=== PATIENT | female | born 1945 | race Asian ===

== ENCOUNTER 2024-03-10 19:32 | Emergency (ER) | payer MEDICARE, OTHER, SELFPAY ==
[2024-03-10 19:38] VITALS: BP 194/74
[2024-03-10 20:01] LABS: % Basophils 0.7 % (0-2); % Eosinophils 4.6 % (0-6); % Immature Granulocytes 0.2 % (0-0.5); % Lymphocytes 23.1 % (20.5-51.1); % Monocytes 7.8 % (1.7-9.3); % Neutrophils 63.6 % (42.2-75.2); Absolute Basophils 0.1 10^3/uL (0-0.2); Absolute Eosinophils 0.4 10^3/uL (0-0.7); Absolute Monocytes 0.7 10^3/uL (0.1-0.6); Absolute Neutrophils 5.5 10^3/uL (1.4-6.5); Hematocrit 34.7 % (37.0-47.0); Hemoglobin 12.5 g/dL (12.0-16.0); Mean Corpuscular Hgb 30.3 pg (27.0-31.0); Mean Platelet Volume 9.7 fL (7.4-10.4); Nucleated Red Blood Cells % 0 %; Platelet Count 235 10^3/uL (130-400); Red Blood Cell Count 4.13 10^6/uL (4.20-5.40); Red Cell Dist. Width 12.9 % (11.5-14.5); White Blood Cell Count 8.6 10^3/uL (4.8-10.8)
[2024-03-10 20:12] LABS: ALT (SGPT) 19 U/L (0-35); AST (SGOT) 37 U/L (14-36); Albumin 4.8 g/dl (3.5-5.0); Alkaline Phosphatase 92 U/L (38-126); Blood Urea Nitrogen 27 mg/dl (7-17); Calcium 10.5 mg/dl (8.4-10.2); Carbon Dioxide 24 mmol/L (22-30); Chloride 93 mmol/L (98-107); Glucose 93 mg/dl (70-99); Potassium 4.5 mmol/L (3.5-5.1); Sodium 128 mmol/L (135-145); Total Bilirubin 0.4 mg/dl (0.2-1.3); Total Protein 7.9 g/dl (6.3-8.2); eGFR > 60.00
--- NOTE | 2024-03-10 22:55 | ED.GENMED ---
History of Present Illness
<HALEIGH Dee - Last Filed: 03/11/24 02:31>
General
Chief Complaint: Back Pain
Source: patient, records and family
Exam Limitations: none
Time Seen by Provider: 03/10/24 22:44
Travel History
Have you had any contact with someone who has COVID-19?: No
Do you have any symptoms of coronavirus? Fever > 100 degrees, chills, cough, shortness of breath, sore throat, loss of taste or smell, muscle aches, or headache?: No
History of Present Illness
History of Present Illness:
78 year old female with hx of HLD, HTN, SD, s/p cardiac stents, hypothyroidism who presents with sudden onset of severe head ache that that began at 1900 today. Head ache is diffused to the top of the head and radiates to the back of the neck.
States the pain has been constant but has improved since onset. She also notes runny nose that began today. Denies fevers/chills, vision changes, numbness, weakness, fatigue, cough, chest pain, SOB, abdominal pain, vomiting, diarrhea. Denies trauma
or injury. Pt does not take blood pressure at home. Pt reports intermittent dizziness described as a room spinning sensation that began 2 weeks ago. She takes Meclizine for these symptoms. Pt speaks Polish. Her son is present for glass checker
assistance.
Pt takes Metoprolol 50 mg daily, Lisinopril 40 mg daily in the AM and Amlodipine 5 mg QHS. She took all her medications today.
Records review shows pt was here on 09/10/21 for head pressure and head ache. She was found to be hypertensive at 153/65. She was discharged with likely symptomatic hypertension. No TIA or CVA suspected. EKG, trop were negative.
Past History
<HALEIGH Dee - Last Filed: 03/11/24 02:31>
Past History
ED Past Medical History: CAD, HTN, Hypercholesterolemia and Hypothyroidism
ED Past Surgical History: Cardiac (Cardiac catheterization with stents)
Social History
Tobacco: Non-smoker
Alcohol: None
Drug: None
Living: with family
Employment: Retired
Review of Systems
<HALEIGH Dee - Last Filed: 03/11/24 02:31>
Review of Systems
Allergies reviewed?: Yes
All Other Systems: ROS reviewed and negative except as documented in HPI and ROS
Constitutional: Reports no symptoms
EENT: Reports runny nose
Respiratory: Reports no symptoms
Cardiac: Reports no symptoms
ABD/GI: Reports no symptoms
: Reports no symptoms
Musculoskeletal: Reports no symptoms
Skin: Reports no symptoms
Neurological: Reports headache
Endocrine: Reports no symptoms
Hematologic/Lymphatic: Reports no symptoms
Psychiatric: Reports no symptoms
Phy Exam
<HALEIGH Dee - Last Filed: 03/11/24 02:31>
General Physical Exam
General Presentation: well appearing and mild distress
General age: appears stated age
General Skin: warm and dry
General Habitus: normal
General Mental: alert
General Hydration: appears well hydrated
Cardiovascular Exam
Cardiovascular Exam: regular rate/rhythm, no edema, no gallop, no murmur and normal peripheral pulses
Pulmonary Exam
Pulmonary Exam: lungs clear, no respiratory distress, no rales, no crackles, no rhonchi, no wheezing and no cough
Neurological Exam
Neurological Exam: alert, oriented x3, CN II-XII intact, no motor deficits, no sensory deficits and speech normal
Musculoskeletal Exam
Musculoskeletal Exam: full ROM (neck)
Skin Exam
Skin Exam: normal color and warm/dry
Psychiatric Exam
Psychiatric Exam: normal mood/affect
Course
<HALEIGH Dee - Last Filed: 03/11/24 02:31>
Orders/Labs/Results
Orders:
Orders
03/10/24 19:51
Complete Blood Count/With Diff Urgent
Comprehensive Metabolic Panel Urgent
03/10/24 23:29
0.9% Sodium Chloride 1000 ml [Nss] 1,000 ml IV BOLUS
Acetaminophen [Tylenol] 1,000 mg PO NOW STA
03/11/24 00:15
CT Head W/o Iv Contrast Urgent
Reason For Exam: headache
Abnormal Lab Results
03/10/24
19:51
RBC 4.13 L 10^6/uL
(4.20-5.40)
Hct 34.7 L %
(37.0-47.0)
Absolute Monos (auto) 0.7 H 10^3/uL
(0.1-0.6)
Sodium 128 L mmol/L
(135-145)
Chloride 93 L mmol/L
(98-107)
BUN 27 H mg/dl
(7-17)
Calcium 10.5 H mg/dl
(8.4-10.2)
AST 37 H U/L
(14-36)
03/10/24 19:51
03/10/24 19:51
Vital Signs
Initial and Last Documented VS:
Initial Vital Signs
Temp Pulse Resp BP Pulse Ox
98.6 F 65 20 194/74 99
03/10/24 19:38 03/10/24 19:38 03/10/24 19:38 03/10/24 19:38 03/10/24 19:38
Last Documented Vital Signs
Temp Pulse Resp BP Pulse Ox
98.6 F 65 20 138/56 97
03/10/24 19:38 03/10/24 19:38 03/10/24 19:38 03/11/24 01:34 03/11/24 01:34
[place];Daisy Church, DO - Last Filed: 03/11/24 01:40>
Orders/Labs/Results
Orders:
Orders
03/10/24 19:51
Complete Blood Count/With Diff Urgent
Comprehensive Metabolic Panel Urgent
03/10/24 23:29
0.9% Sodium Chloride 1000 ml [Nss] 1,000 ml IV BOLUS
Acetaminophen [Tylenol] 1,000 mg PO NOW STA
03/11/24 00:15
CT Head W/o Iv Contrast Urgent
Reason For Exam: headache
Abnormal Lab Results
03/10/24
19:51
RBC 4.13 L 10^6/uL
(4.20-5.40)
Hct 34.7 L %
(37.0-47.0)
Absolute Monos (auto) 0.7 H 10^3/uL
(0.1-0.6)
Sodium 128 L mmol/L
(135-145)
Chloride 93 L mmol/L
(98-107)
BUN 27 H mg/dl
(7-17)
Calcium 10.5 H mg/dl
(8.4-10.2)
AST 37 H U/L
(14-36)
03/10/24 19:51
03/10/24 19:51
Vital Signs
Initial and Last Documented VS:
Initial Vital Signs
Temp Pulse Resp BP Pulse Ox
98.6 F 65 20 194/74 99
03/10/24 19:38 03/10/24 19:38 03/10/24 19:38 03/10/24 19:38 03/10/24 19:38
Last Documented Vital Signs
Temp Pulse Resp BP Pulse Ox
98.6 F 65 20 138/56 97
03/10/24 19:38 03/10/24 19:38 03/10/24 19:38 03/11/24 01:34 03/11/24 01:34
<HALEIGH Dee - Last Filed: 03/11/24 02:31>
MDM/Problems Addressed
Differential Diagnosis Includes:
symptomatic hypertension, migraine, TIA, CVA
MDM/Problems Addressed:
78 year old female who presents with global head ache that radiates down the back of the head to the neck that began at 1900 today.
<HALEIGH Dee - Last Filed: 03/11/24 02:31>
*Critical Care Note
Total Time (30-74mins, 75-104mins- exclusive of procedures): Not Applicable
<Daisy Church DO - Last Filed: 03/11/24 01:40>
*Radiology
Radiology exam reviewed: radiology read reviewed
*Pulse Oximetry
Patient hypoxic: no
ED Attending Note
<HALEIGH Dee - Last Filed: 03/11/24 02:31>
-
Portions of this chart may have been created with voice recognition software.� Occasional wrong word or��sound alike� substitutions may have occurred due to the inherent limitations of voice recognition software.
<Daisy Church DO - Last Filed: 03/11/24 01:40>
ED Attending Note
Patient seen and examined by attending physician: Yes
I performed the substantive portion of visit, reviewed & personally made and approve the management plan that is documented in note by myself or ACACIA.: Yes
I performed a history and physical exam of patient and discussed management with resident, I reviewed resident's note and agree with documented findings and plan of care.: Yes
ED Attending Note:
This is a quite spry 78-year-old woman who resides at home with her son and grandson. She has history of hypertension maintained on amlodipine, lisinopril, metoprolol. She has history of hyperlipidemia and remote history of SD.
More recently over the past 2 weeks she has had intermittent episodes of dizziness, vertigo which she has had sporadically in the past. Evaluated by her PCP, prescribed meclizine with improvement in vertigo.
Tonight however she developed generalized headache that began around 7:30 PM. Headache described as a pressure, throbbing extending from her forehead to her occiput and to her posterior neck. No associated dizziness nor lightheadedness, no nausea,
no vision changes, no chest pain or palpitations, no weakness nor numbness. She has not taken anything for her headache and admits that headache is markedly improved but has not resolved.
She was evaluated in this ED with somewhat similar headache August 2021. Unremarkable ED workup at that time including laboratory studies, CT of the head. Headache appeared to have resolved without interventions.
She does admit to mild nasal congestion over the past day or 2, rare episodes of sneezing but has not had a cough nor fever nor sore throat.
She has had no falls. No change in medications.
She does not monitor her blood pressure at home but states blood pressures generally fairly well controlled.
Patient speaks Polish, her son is interpreting.
GENERAL: 78-year-old woman appears younger than stated age, bright and alert, pleasant, appears in no acute distress. Initial triage blood pressure elevated at 194/74, upon recheck 151/59.
EYE: pupils equal and reactive. Extraocular muscles intact. Discs are sharp bilaterally. Anicteric
NECK: Supple, nontender, no meningismus, no significant adenopathy. No bruit. Full range of motion without difficulty nor pain.
ENT: posterior pharynx is clear, oral mucosa is moist. TM clear b/l, nares have moderately boggy pale blue turbinates with scant clear rhinorrhea.
CARDIAC: Regular rate and rhythm. no murmur.
LUNGS: Clear breath sounds bilaterally, no acute respiratory distress, no wheezes/rales/rhonchi
ABDOMEN: Soft, nondistended, without focal tenderness, normoactive BS.
NEUROLOGICAL: Alert and oriented x3, no focal neuro deficits. Motor strength is 5/5 bilaterally. Gross sensation is intact. Gait is steady.
SKIN: Warm and dry, normal color, skin intact. No rash.
MUSCULOSKELETAL: No C/C/E. peripheral pulses are full and equal b/l. No palpable tenderness.
PSYCH: Normal and appropriate interaction.
78-year-old woman presents with acute generalized headache that began this evening, moderate in intensity but denies thunderclap in quality. Overall improving but has not completely resolved.
Patient to be somewhat similar headache for which she presented 2020.
Moderate hypertension noted initially has improved to 151/59.
Headache may be hypertension related versus tension headache, sinus headache. Less likely acute intracranial hemorrhage/abnormality but due to advanced age will check CT of the head.
Overall exam is reassuring.
Labs show unremarkable CBC. Mild hyponatremia, similar hyponatremia noted in 2020.
Mild to moderate prerenal azotemia with BUN of 27, normal creatinine 0.7. BUN has trended up moderately compared to previous labs in 2020.
Son notes that patient has had a mildly decreased appetite over the past week or 2 but she has had no GI illness nor febrile illness.
Will check CT, give Tylenol for headache and will instill liter of normal saline solution for mild dehydration.
03/11/[address] is unremarkable.
Patient resting comfortably, reports complete relief of headache after Tylenol.
Discussed importance of remaining well-hydrated on a daily basis.
Prompt follow-up with PCP for recheck.
Discharge Plan
Departure
Patient Disposition: Home (Routine Discharge)
Date of Disposition: 03/11/24
Time of Disposition: 01:39
Patient with high blood pressure during this ER visit?: No
Condition: Good
Discharge Problem:
Acute headache
Instructions: Headache, Adult ED
Prescriptions:
No Action
metoprolol succinate 50 MG tablet extended release 24 hr
50 mg PO DAILY
amlodipine [Norvasc] 5 MG tablet
5 mg PO DAILY
levothyroxine [Synthroid] 50 MCG tablet
50 mcg PO DAILY
loteprednol etabonate [Lotemax] 5 GM drops,gel
5 gm OP DAILY
meclizine [Motion Sickness Relief(mecliz)] 25 MG tablet
25 mg PO DAILY
aspirin 81 MG tablet,chewable
81 mg PO DAILY
zolpidem 5 MG tablet
5 mg PO HSPRN PRN (Reason: insomnia)
lisinopril [Prinivil] 40 MG tablet
40 mg PO DAILY
Referrals:
Berna Webb MD [Family Provider] - Call in 1-3 days for appt
Interventions
Interventions:
*Risk Screen - Suicide Last Done: 03/10/24 19:38
*General Assessment Last Done: 03/10/24 19:38
*Neglect/Abuse Screening Last Done: 03/10/24 19:38
ED- Fall Risk Assessment Last Done: 03/10/24 23:50
*ED COVID-19 Vaccine History Last Done: 03/11/24 01:44
*Nursing Disposition Last Done: 03/11/24 01:44
ED-Musculoskeletal Assessment Last Done: 03/10/24 23:50
Discharge Date and Time
Discharge Date/Time: 03/11/24 01:45
Print Language: [place]
[2024-03-10] MEDS: TYLENOL 1000 MG PO (23:43)
[2024-03-10] MEDS: NSS 1000 IV (23:44)
[2024-03-11 01:34] VITALS: BP 138/56
== END 2024-03-11 01:45 | disposition home or self-care (01) ==
LOC: EMR 19:32
PROVIDERS: Student in an Organized Health Care Education/Training Program; EMERGENCY PHYSICIAN Emergency Medicine; FAMILY PHYSICIAN Internal Medicine
DX: R51.9 Headache, unspecified (principal); I10 Essential (primary) hypertension; E86.0 Dehydration; E87.1 Hypo-osmolality and hyponatremia; E03.9 Hypothyroidism, unspecified; E78.00 Pure hypercholesterolemia, unspecified
CPT/HCPCS: 99284; 96360; 70450; 80053; 85025